=== PATIENT | female | born 1985 | race African-American/Black ===

== ENCOUNTER 2022-07-26 12:49 | Emergency (ER) | payer MEDICAID ==
[~2022-07-26] VITALS: Ht 157.5 cm; Wt 104.3 kg
[2022-07-26] MEDS ORDERED: ACETAMINOPHEN 500 MG TABLET PO ONE (15:00)
[2022-07-26] MEDS ORDERED: DIPH,PERTUSS(ACELL),TET VAC/PF 0.5 ML VIAL IM ONE (15:00)
[2022-07-26 15:22] VITALS: BP 128/61
[2022-07-26] MEDS ORDERED: NAPR-1180 PO (15:47)
== END 2022-07-26 15:55 | disposition home or self-care (01) ==
LOC: EDH 12:49
DX: S99.921A Unspecified injury of right foot, initial encounter (principal); S91.302A Unspecified open wound, left foot, initial encounter; E11.9 Type 2 diabetes mellitus without complications; W18.39XA Other fall on same level, initial encounter; Y93.89 Activity, other specified; Y92.89 Other specified places as the place of occurrence of the external cause; Y99.8 Other external cause status
CPT/HCPCS: 73090; 73120; 73620; 81025; 90715

== ENCOUNTER 2022-08-24 15:47 | Emergency (ER) | payer MEDICAID ==
[~2022-08-24] VITALS: Ht 160 cm; Wt 104.3 kg
[~2022-08-24 15:47] MED LIST: ACET-2079 PO; BISA-72 PO; GABA-529 PO; METF-890 PO; NAPR-1180 PO
[2022-08-24 16:03] VITALS: BP 155/97
[2022-08-24 18:02] LABS: BASOPHILS % (AUTO) 0.8 % (0.0-5.0); EOSINOPHILS % (AUTO) 3.3 % (0.0-8.0); HEMATOCRIT 37.5 % (36-48); LYMPHOCYTES % (AUTO) 28.3 % (21.0-51.0); MEAN CORPUSCULAR HEMOGLOBIN 27.4 pg (27.0-33.0); MEAN CORPUSCULAR HGB CONC 33.3 g/dL (32.0-36.0); MEAN CORPUSCULAR VOLUME 82.1 fL (79-99); MONOCYTES % (AUTO) 4.1 % (3.0-13.0); NEUTROPHILS % (AUTO) 63.1 % (40.0-77.0); PLATELET COUNT (AUTO) 510 K/uL (130-400); RED BLOOD CELL COUNT(AUTO) 4.57 MIL/uL (4.00-5.50); RED CELL DISTRIBUTION WIDTH 12.4 % (11.0-15.5); WHITE BLOOD COUNT (AUTO) 14.2 K/uL (4.8-10.8)
[2022-08-24 18:22] LABS: CREATININE 0.7 mg/dL (0.5-1.5)
[2022-08-24 18:27] LABS: ALBUMIN 3.8 g/dL (3.5-5.0); CRP QUANTITATIVE 9.5 mg/L (0.00-9.0); TOTAL PROTEIN, SERUM 8.7 g/dL (6.0-8.3)
[2022-08-24 19:05] LABS: ERYTHROCYTE SEDIMENTATION RATE 31 MM/HR (0-20)
== END 2022-08-24 20:20 | disposition left against medical advice (07) ==
LOC: EDH 15:47
DX: T80.218A Other infection due to central venous catheter, initial encounter (principal); R22.31 Localized swelling, mass and lump, right upper limb; E11.9 Type 2 diabetes mellitus without complications; E03.9 Hypothyroidism, unspecified; F17.200 Nicotine dependence, unspecified, uncomplicated; Z79.899 Other long term (current) drug therapy; Y65.8 Other specified misadventures during surgical and medical care; Y92.89 Other specified places as the place of occurrence of the external cause
CPT/HCPCS: 36415; 80053; 83605; 84145; 85025; 85651; 86140